=== PATIENT | female | born 1940 | race Caucasian/White ===

== ENCOUNTER 2019-03-30 18:41 | Emergency (ER) | payer OTHER ==
[~2019-03-30] VITALS: Ht 162.6 cm
[2019-03-30] MEDS ORDERED: COZAAR25 MG (19:08)
== END 2019-03-30 21:48 | disposition home or self-care (01) ==
LOC: ER 18:41
DX: S81.822A Laceration with foreign body, left lower leg, initial encounter (principal); W26.8XXA Contact with other sharp object(s), not elsewhere classified, initial encounter; Y93.89 Activity, other specified; Y92.090 Kitchen in other non-institutional residence as the place of occurrence of the external cause; Y99.8 Other external cause status

== ENCOUNTER → 2019-04-07 | Emergency (ER) | payer OTHER ==
[~2019-04-07] VITALS: Ht 162.6 cm; Wt 49.0 kg
[~2019-04-07] MED LIST: COZAAR25 MG
== END | disposition home or self-care (01) ==
LOC: ER 15:38
DX: Z48.02 Encounter for removal of sutures (principal)